=== PATIENT | male | born 1955 | race African-American/Black ===

== ENCOUNTER 2019-04-15 20:32 | Observation (INO) ==
[2019-04-15 21:10] LABS: Basophils % 0.4 % (0.0-0.8); Eosinophils # 0.1 10*3/uL (0.0-0.87); Eosinophils % 0.8 % (0.00-10.9); Hemoglobin 12.4 GM/DL (14.0-18.0); Immature Granulocytes % 0.4 %; Immature Granulocytes Absolute 0.04 #; Lymphocytes # 1.6 10*3/uL (1.4-4.0); Lymphocytes % 15.2 % (21.2-54.2); Mean Corpuscular HGB Conc 32.6 GM/DL (32-36); Mean Corpuscular Volume 95.2 FL (87-102); Mean Platelet Volume 10.8 FL (9.6-12.0); Monocytes % 7.2 % (1.7-12.7); Platelet Count 227 T/CUMM (130-400); Red Blood Count 3.99 MC/CUMM (3.8-5.5); Red Cell Distribution Width 13.4 % (9.3-17.3); White Blood Count 10.5 T/CUMM (4-12)
[2019-04-15 21:29] LABS: Albumin 3.4 G/DL (3.4-5.0); Bilirubin,Total 0.7 MG/DL (0.2-1.0); Calcium 9.5 MG/DL (8.5-10.1); Osmolality,Calculated 282.4 MOS/KG (273-304); Total Protein 7.7 G/DL (6.4-8.3)
[2019-04-15 21:37] LABS: Apearance,Urine CLEAR (Clear); Bacteria,Urine Occasional /HPF (Few); Bilirubin,Urine Negative (Negative); Blood, Urine Negative (Negative); Glucose,Urine (UA) Negative (Negative); Ketones,Urine 5 mg/dL (Negative); Mucus,Urine Many /LPF (Occasional); Nitrite,Urine Negative (Negative); Protein,Urine Negative; Squamous Epithelial Cell,Urine Occasional /HPF (0-10); Urine Color Amber (Yellow); Urine Specific Gravity 1.034 (1.001-1.035); WBC,Urine 1 /HPF (0-6)
[2019-04-15] MEDS ORDERED: MORPHINE 4 MG/1 ML VIAL IV PRN (23:51)
[2019-04-15] MEDS ORDERED: ONDANSETRON 4 MG/2 ML VIAL IV PRN (23:51)
[2019-04-16] MEDS: DEXTROSE 5% NACL 0.45% 1,000 ML IV SCH (01:17)
[2019-04-16 05:30] LABS: Basophils % 0.3 % (0.0-0.8); Eosinophils # 0.2 10*3/uL (0.0-0.87); Eosinophils % 1.7 % (0.00-10.9); Hematocrit 33.6 VOL% (42.0-52.0); Hemoglobin 11.2 GM/DL (14.0-18.0); Immature Granulocytes % 0.3 %; Immature Granulocytes Absolute 0.03 #; Lymphocytes % 22.4 % (21.2-54.2); Mean Corpuscular HGB Conc 33.3 GM/DL (32-36); Mean Corpuscular Volume 93.9 FL (87-102); Mean Platelet Volume 10.9 FL (9.6-12.0); Neutrophils % 68.3 % (38.7-73.9); Platelet Count 194 T/CUMM (130-400); Red Blood Count 3.58 MC/CUMM (3.8-5.5); Red Cell Distribution Width 13.5 % (9.3-17.3); White Blood Count 8.8 T/CUMM (4-12)
[2019-04-16 05:47] LABS: Calcium 8.6 MG/DL (8.5-10.1); Osmolality,Calculated 284.1 MOS/KG (273-304)
[2019-04-16] MEDS ORDERED: ONDANSETRON 4 MG TABLET PO PRN (11:08)
[2019-04-16] MEDS ORDERED: ACETAMINOPHEN 325 MG TABLET PO PRN (11:08)
[2019-04-16] MEDS: FAMOTIDINE 20 MG/2 ML VIAL IV SCH ×2 (12:57→20:48)
[2019-04-16] MEDS: MEMANTINE 10 MG TABLET PO SCH ×2 (14:17→20:48)
[2019-04-16] MEDS: MELATONIN 3 MG TABLET PO PRN (20:48)
[2019-04-16] MEDS: DONEPEZIL 10 MG TABLET PO SCH (20:48)
[2019-04-17 08:30] LABS: Basophils % 0.6 % (0.0-0.8); Eosinophils # 0.2 10*3/uL (0.0-0.87); Eosinophils % 4.8 % (0.00-10.9); Hematocrit 34.2 VOL% (42.0-52.0); Hemoglobin 11.2 GM/DL (14.0-18.0); Immature Granulocytes % 0.2 %; Immature Granulocytes Absolute 0.01 #; Lymphocytes # 1.9 10*3/uL (1.4-4.0); Lymphocytes % 39.2 % (21.2-54.2); Mean Corpuscular HGB Conc 32.7 GM/DL (32-36); Mean Platelet Volume 10.9 FL (9.6-12.0); Monocytes % 8.3 % (1.7-12.7); Neutrophils % 46.9 % (38.7-73.9); Platelet Count 182 T/CUMM (130-400); Red Cell Distribution Width 13.4 % (9.3-17.3)
[2019-04-17 08:59] LABS: Calcium 8.4 MG/DL (8.5-10.1); Osmolality,Calculated 276.4 MOS/KG (273-304)
[2019-04-17] MEDS: DEXTROSE 5% NACL 0.45% 1,000 ML IV SCH ×4 (08:59→21:15)
[2019-04-17] MEDS: FAMOTIDINE 20 MG/2 ML VIAL IV SCH ×2 (08:59→20:15)
[2019-04-17] MEDS: MEMANTINE 10 MG TABLET PO SCH ×2 (09:00→20:15)
[2019-04-17] MEDS: DONEPEZIL 10 MG TABLET PO SCH ×2 (09:00→20:15)
[2019-04-17] MEDS: FOLIC ACID 1 MG TABLET PO SCH (09:00)
[2019-04-17] MEDS ORDERED: MAGNESIUM OXIDE 400 MG TABLET PO ONE (09:42)
[2019-04-17] MEDS: POTASSIUM CHLORIDE RIDER 10 MEQ in PREMIX 1 EACH IV SCH ×4 (10:16→13:11)
[2019-04-17] MEDS: MELATONIN 3 MG TABLET PO PRN (20:15)
[2019-04-18] MEDS: DEXTROSE 5% NACL 0.45% 1,000 ML IV SCH ×2 (01:41→10:29)
[2019-04-18 07:42] VITALS: BP 121/67
[2019-04-18] MEDS: MEMANTINE 10 MG TABLET PO SCH (08:43)
[2019-04-18] MEDS: FOLIC ACID 1 MG TABLET PO SCH (08:43)
[2019-04-18] MEDS: DONEPEZIL 10 MG TABLET PO SCH (08:43)
[2019-04-18] MEDS: FAMOTIDINE 20 MG/2 ML VIAL IV SCH (08:43)
[2019-04-18] MEDS ORDERED: ceFAZolin 1,000 MG in SYRINGE 1 EACH IV ONE (09:13)
== END 2019-04-18 11:18 ==
LOC: N.ED 20:32 → N.EDINP 20:32 → N.3E 04-16 00:12
PROVIDERS: ADMIT Student in an Organized Health Care Education/Training Program; ATTEND Student in an Organized Health Care Education/Training Program